=== PATIENT | female | born 1965 | race Caucasian/White ===

== ENCOUNTER 2021-05-04 09:00 | Day surgery (SDC) | payer BC ==
[~2021-05-04 09:00] MED LIST: Acetaminophen 325 MG Tab PO SCH; Dexamethasone 4 MG/ML 5 ML MDV ONE; Ketamine 500 mg/10 ML MDV ONE; Ketorolac 15 MG/ML SDV ONE; Lactated Ringers 1,000 ML IV SCH; Lidocaine 1% 4 ML ONE; Lidocaine 1%/Sod Bicarbonate in NS 8.4% 1 ML Syringe IDERM PRN; Midazolam 1 MG/ML 2 ML SDV ONE; Ondansetron 4 MG/2 ML SDV ONE; Pregabalin 25 MG Cap PO SCH; Propofol 200 MG/20 ML SDV ONE; Sodium Chloride 0.9% 10 ML Syringe FLUSH PRN; ceFAZolin 1 GM Vial ONE; fentaNYL 100 MCG/2 ML SDV ONE; oxyCODONE ER 10 MG TAB.ER PO SCH
[2021-05-04] MEDS ORDERED: EPINEPHrine 1 MG/ML SDV ONE (09:16)
[2021-05-04] MEDS ORDERED: Ropivacaine 0.5% 5 MG/ML 30 ML SDV ONE (09:16)
[2021-05-04] MEDS ORDERED: Scopolamine 1.5 MG Transdermal Patch TOP ONE (11:00)
[2021-05-04] MEDS ORDERED: ceFAZolin 1 GM Vial ONE (11:50)
[2021-05-04] MEDS ORDERED: Lactated Ringers 1,000 ML ONE (11:50)
[2021-05-04] MEDS: Morphine 8 MG, EPINEPHrine 0.3 MG, Cefuroxime 750 MG, Ketorolac 30 MG, Sodium Chloride ... PRN ×15 (12:17→12:50)
[2021-05-04] MEDS: Vancomycin 1 GM SDV ONE ×4 (12:18→13:02)
--- NOTE | 2021-05-04 12:32 | PCM.PREANE ---
Preanesthetic Assessment - Procedure Proposed Procedure: Right Total Knee Arthroplasty - Anesthesia/Transfusion/Family Hx Anesthesia History: Prior Anesthesia Reaction Type of Anesthesia Reaction: Excessive Nausea/Vomiting Family History of Anesthesia Reaction: No - Review of Systems General: No Symptoms Pulmonary: No Symptoms Cardiovascular: Other (Elevated BP reading today. Per H&P intermittent elevated BP readings. 176/95 down to 146/83 now. ) Gastrointestinal: No Symptoms Neurological: Pre-Existing Deficit (Brain Surgery in 2000, posterior skull plate. ) Other: Reports: None (Obesity BMI 40), Thyroid Problems - Physical Assessment NPO Status Date: 05/03/21 NPO Status Time: 23:30 Vital Signs: Last Vital Signs Temp 36.7 C 05/04/21 09:10 Pulse 72 05/04/21 09:20 Resp 20 05/04/21 09:10 BP 146/83 H 05/04/21 09:20 Pulse Ox 95 05/04/21 09:10 Height: 1.73 m Weight: 113.1 kg ASA Class: 3 Mental Status: Alert & Oriented x3 Airway Class: Mallampati = 2 Dentition: Reports: Partial (Upper) Thyro-Mental Finger Breadths: 2 Mouth Opening Finger Breadths: 3 ROM/Head Extension: Full Lungs: Clear to Auscultation, Normal Respiratory Effort Cardiovascular: Regular Rate, Regular Rhythm - Lab Values: Reviewed. - Imaging/EKG Impressions: NSR at 93 bpm. Left Ventricular Hypertrophy. - Allergies Allergies/Adverse Reactions: Allergies Allergy/AdvReac Type Severity Reaction Status Date / Time No Known Allergies Allergy Verified 05/03/21 12:18 - Anesthesia Plan Pre-Op Medication Ordered: Other (Scopalamine Patch) - Acknowledgements Anesthesia Type Planned: Spinal Pt an Appropriate Candidate for the Planned Anesthesia: Yes Alternatives and Risks of Anesthesia Discussed w Pt/Guardian: Yes Pt/Guardian Understands and Agrees with Anesthesia Plan: Yes PreAnesthesia Questionnaire HEENT History: Reports: Impaired Vision, Other (See Below) Other HEENT History: wears glasses, contacts, has partial Cardiovascular History: Reports: High Cholesterol Respiratory History: Reports: None Gastrointestinal History: Reports: None Genitourinary History: Reports: None RESPIRATORY THERAPY DIRECTOR History: Reports: Musculoskeletal History: Reports: Arthritis, Other (See Below) Other Musculoskeletal History: carpal tunnel syndrome Neurological History: Reports: None Psychiatric History: Reports: None Endocrine/Metabolic History: Reports: Hypothyroidism Hematologic History: Reports: None Immunologic History: Reports: None Oncologic (Cancer) History: Reports: None Dermatologic History: Reports: None - Past Surgical History Cardiovascular Surgical History: Reports: None Respiratory Surgical History: Reports: None GI Surgical History: Reports: Appendectomy Female Surgical History: Reports: Hysterectomy Male Surgical History: Reports: None Endocrine Surgical History: Reports: None Neurological Surgical History: Reports: Other (See Below) Other Neurological Surgeries/Procedures: brain stem surgery with plate in 2000 Musculoskeletal Surgical History: Reports: Other (See Below) Other Musculoskeletal Surgeries/Procedures:: repair of ruptured tendon in left hand Oncologic Surgical History: Reports: None Dermatological Surgical History: Reports: None - SUBSTANCE USE Tobacco Use Status *Q: Never Tobacco User Recreational Drug Use History: No - HOME MEDS Home Medications: Home Meds Fish Oil/[place]-3 Fatty Acids [Fish Oil] 1,200 mg PO DAILY 10/06/14 [History] Glucosamine/D3/Boswellia Eliana [Osteo Bi-Flex Caplet] 1 each PO DAILY 10/06/14 [History] Cholecalciferol (Vitamin D3) [Vitamin D3] 1,000 unit PO DAILY 05/03/21 [History] Levothyroxine Sodium [Levothyroxine] 175 mcg PO DAILY 05/03/21 [History] Mv-Min/Iron/Folic/Calcium/Vitk [Women's Multivitamin Tablet] 1 tab PO DAILY 05/03/21 [History] Aspirin [Aspirin EC] 325 mg PO BID #84 tab 05/04/21 [Rx] Cyclobenzaprine [Flexeril] 10 mg PO BID PRN #20 tab 05/04/21 [Rx] oxyCODONE 5 - 10 mg PO Q4H PRN #40 tab 05/04/21 [Rx] - CURRENT (IN HOUSE) MEDS Current Meds: Current Medications Acetaminophen (Acetaminophen 325 Mg Tab) 975 mg PO ONETIME LISY Stop: 05/04/21 16:00 Last Admin: 05/04/21 09:25 Dose: 975 mg Documented by: Morphine Sulfate 8 mg/Epinephrine HCl 0.3 mg/Cefuroxime Sodium 750 mg/Ketorolac Tromethamine 30 mg/Sodium Chloride 7.9 ml 0 mg .XX ASDIRECTED PRN PRN Reason: Pain Stop: 05/04/21 13:00 Last Admin: 05/04/21 12:17 Dose: 788.3 mg Documented by: Lactated Ringer's (Ringers, Lactated) 1,000 mls @ 125 mls/hr IV ASDIRECTED LISY Stop: 05/04/21 23:00 Last Admin: 05/04/21 09:15 Dose: 125 mls/hr Documented by: Lidocaine/Sodium Bicarbonate (Lidocaine 1%/Sod Bicarbonate In Ns 8.4% 1 Ml Syringe) 0.25 ml IDERM ONETIME PRN PRN Reason: Prior to IV Start Stop: 05/04/21 18:00 Last Admin: 05/04/21 09:15 Dose: 0.25 ml Documented by: Oxycodone HCl (Oxycodone Er 10 Mg Tab.Er) 10 mg PO ONETIME LISY Stop: 05/04/21 18:00 Last Admin: 05/04/21 09:23 Dose: 10 mg Documented by: Pregabalin (Pregabalin 25 Mg Cap) 50 mg PO ONETIME LISY Stop: 05/04/21 18:00 Last Admin: 05/04/21 09:24 Dose: 50 mg Documented by: Sodium Chloride (Sodium Chloride 0.9% 10 Ml Syringe) 10 ml FLUSH ASDIRECTED PRN PRN Reason: Keep Vein Open Stop: 05/04/21 18:00 Discontinued Medications Cefazolin Sodium (Cefazolin 1 Gm Vial) Confirm Administered Dose 2 gm .ROUTE .STK-MED ONE Stop: 05/04/21 08:56 Cefazolin Sodium (Cefazolin 1 Gm Vial) Confirm Administered Dose 1 gm .ROUTE .STK-MED ONE Stop: 05/04/21 11:51 Dexamethasone (Dexamethasone 4 Mg/Ml 5 Ml Mdv) Confirm Administered Dose 20 mg .ROUTE .STK-MED ONE Stop: 05/04/21 08:56 Epinephrine HCl (Epinephrine 1 Mg/Ml Sdv) Confirm Administered Dose 1 mg .ROUTE .STK-MED ONE Stop: 05/04/21 09:17 Fentanyl (Fentanyl 100 Mcg/2 Ml Sdv) Confirm Administered Dose 100 mcg .ROUTE .STK-MED ONE Stop: 05/04/21 08:56 Lidocaine HCl (Xylocaine-Mpf 1%) Confirm Administered Dose 4 mls @ as directed .ROUTE .STK-MED ONE Stop: 05/04/21 08:56 Lactated Ringer's (Ringers, Lactated) Confirm Administered Dose 1,000 mls @ as directed .ROUTE .STK-MED ONE Stop: 05/04/21 11:51 Ketamine HCl (Ketamine 500 Mg/10 Ml Mdv) Confirm Administered Dose 500 mg .ROUTE .STK-MED ONE Stop: 05/04/21 08:56 Ketorolac Tromethamine (Ketorolac 15 Mg/Ml Sdv) Confirm Administered Dose 15 mg .ROUTE .STK-MED ONE Stop: 05/04/21 08:56 Midazolam HCl (Midazolam 1 Mg/Ml 2 Ml Sdv) Confirm Administered Dose 2 mg .ROUTE .STK-MED ONE Stop: 05/04/21 08:56 Ondansetron HCl (Ondansetron 4 Mg/2 Ml Sdv) Confirm Administered Dose 4 mg .ROUTE .STK-MED ONE Stop: 05/04/21 08:56 Propofol (Propofol 200 Mg/20 Ml Sdv) Confirm Administered Dose 600 mg .ROUTE .STK-MED ONE Stop: 05/04/21 08:56 Ropivacaine (Ropivacaine 0.5% 5 Mg/Ml 30 Ml Sdv) Confirm Administered Dose 30 ml .ROUTE .STK-MED ONE Stop: 05/04/21 09:17 Scopolamine (Scopolamine 1.5 Mg Transdermal Patch) 1.5 mg TOP ONETIME ONE Stop: 05/04/21 11:01 Last Admin: 05/04/21 10:24 Dose: 1.5 mg Documented by: Tranexamic Acid (Tranexamic Acid 1,000 Mg/10 Ml Amp) Confirm Administered Dose 1,000 mg .ROUTE .STK-MED ONE Stop: 05/04/21 09:23 Last Admin: 05/04/21 12:18 Dose: 1,000 mg Documented by: Vancomycin HCl (Vancomycin 1 Gm Sdv) Confirm Administered Dose 1 gm .ROUTE .STK- MED ONE Stop: 05/04/21 09:23 Last Admin: 05/04/21 12:18 Dose: 1 gm Documented by:
[2021-05-04] MEDS ORDERED: Propofol 200 MG/20 ML SDV ONE (12:37)
[2021-05-04] MEDS ORDERED: fentaNYL 100 MCG/2 ML SDV IVPUSH PRN (12:41)
[2021-05-04] MEDS ORDERED: HYDROmorphone 0.5 MG/0.5 ML Syringe IVPUSH PRN (12:41)
[2021-05-04] MEDS ORDERED: Ondansetron 4 MG/2 ML SDV IVPUSH PRN (12:41)
--- NOTE | 2021-05-04 13:41 | PCM.POSTAN ---
POST ANESTHESIA ASSESSMENT - MENTAL STATUS Mental Status: Alert, Oriented - VITAL SIGNS Vital Signs: Last Vital Signs Temp 36.7 C 05/04/21 09:10 Pulse 72 05/04/21 09:20 Resp 20 05/04/21 09:10 BP 146/83 H 05/04/21 09:20 Pulse Ox 95 05/04/21 09:10 112/65 100 16 96% 99.5F - RESPIRATORY Respiratory Status: Respiratory Rate WNL, Airway Patent, O2 Saturation Stable, Supplemental Oxygen - CARDIOVASCULAR CV Status: Pulse Rate WNL, Blood Pressure Stable - GASTROINTESTINAL GI Status: No Symptoms - PAIN Pain Score: 0 - POST OP HYDRATION Hydration Status: Adequate & Stable
--- NOTE | 2021-05-04 14:02 | PCM.SN.2 ---
- Free Text/Narrative Note: Right selective femoral nerve block at the adductor canal for post-procedure pain control under US guidance requested by Dr. Ram. Date: 05/04/21 Time Out: 1347 Start:1351 End: 1353 Chart reviewed. Consent signed. Questions answered. Appropriate monitors applied. Time out performed. Right mid-shaft femur identified with ultrasound, scanning medially of femur, the femoral artery in the adductor canal visualized, and the femoral nerve located laterally to the artery. The skin was prepped lateral to the ultrasound probe with chlorahexadine times two. The 21ga 4 insulated block needle was inserted under direct ultrasound guidance into the adductor canal. 25mL of 0.5% ropivacaine with 1:200,000 epinephrine was injected circumferentially around the nerve with intermittent negative aspiration noted. Patient tolerated the procedure well. Sterile technique noted along with sterile gloves, mask, and sterile probe cover. See picture on progress note and vital signs on nurses notes. Block completed in PACU. Jason Falk CRNA
--- NOTE | 2021-05-04 14:09 | PCM48HPAN ---
Post Anesthesia Note - EVALUATION WITHIN 48HRS OF ANESTHETIC Vital Signs in Normal Range: Yes Patient Participated in Evaluation: Yes Respiratory Function Stable: Yes Airway Patent: Yes Cardiovascular Function Stable: Yes Hydration Status Stable: Yes Pain Control Satisfactory: Yes Nausea and Vomiting Control Satisfactory: Yes Mental Status Recovered: Yes Vital Signs: Last Vital Signs Temp 36.9 C 05/04/21 14:00 Pulse 73 05/04/21 14:00 Resp 16 05/04/21 14:00 BP 124/74 05/04/21 14:00 Pulse Ox 97 05/04/21 14:00
[2021-05-04] MEDS ORDERED: Cyclobenzaprine 10 MG Tab PO SCH (14:30)
[2021-05-04] MEDS ORDERED: oxyCODONE 5 MG Tab PO SCH (14:30)
--- NOTE | 2021-05-04 16:52 | CR ---
Right knee: AP and crosstable lateral views of the right knee were obtained. Comparison: Prior CT right knee study of 04/21/21. Knee prosthesis is noted. Components are aligned. Patellar prosthesis is also seen. Soft tissue air is noted. No underlying bony abnormality is seen. Impression: 1. Satisfactory postop radiographic appearance of recently placed right knee prosthesis. Diagnostic code #2
--- NOTE | 2021-05-10 07:28 | PCM.OPNOTE ---
- General Post-Op/Procedure Note Date of Surgery/Procedure: 05/04/21 Operative Procedure(s): right total knee arthroplasty with [employer] robotics Pre Op Diagnosis: right knee osteoarthrosis Post-Op Diagnosis: Same Anesthesia Technique: Local, MAC, Spinal Primary Surgeon: Sameer Ram Anesthesia Provider: Johanna Falk Audit Consultant: Glo Krause Audit Consultant: Cecilia Lomas EBL in mLs: 200 Complications: None Condition: Good Free Text/Narrative:: / 9mm 32x10
--- NOTE | 2021-05-14 21:55 | OR ---
DATE OF OPERATION: 05/04/2021 SURGEON: Sameer Ram MD OPERATION PERFORMED: Right total knee arthroplasty with [place] [employer] robotics. PREOPERATIVE DIAGNOSIS: Right knee osteoarthrosis. POSTOPERATIVE DIAGNOSIS: Right knee osteoarthrosis. ANESTHESIA: Local MAC with spinal. ANESTHESIA PROVIDER: Mague Terry. SENIOR SOFTWARE DEVELOPMENT ENGINEER: Glo Krause PA-C and Cecilia Lomas LPN. ESTIMATED BLOOD LOSS: 200 mL. COMPLICATIONS: None. CONDITION: Stable. IMPLANT: 1. [place] size 4 press-fit CR femur. 2. [employer] size 4 press-fit tibial baseplate. 3. [employer] size 4 9 mm CS polyethylene insert. 4. [place] size 32 x 10 mm press-fit asymmetric patella. DESCRIPTION OF PROCEDURE: The patient was identified in the preoperative holding area, where proper site was marked and identified by the surgeon. The patient was taken back to the operating theater where after adequate anesthesia, the patient had nonsterile tourniquet applied to the right lower extremity. The right lower extremity was then sterilely prepped and draped in the usual sterile fashion. OR time-out was performed. The patient received 2 g IV Ancef. The leg benitez boot was then applied to the right lower extremity. The right lower extremity was exsanguinated. Tourniquet was insufflated to 250 mmHg. A standard anterior incision was made and an anterior medial parapatellar arthrotomy was created. Deep fibers of the MCL were raised. Anterior fat pad was resected. Attention was turned to the patella. Patella measured 24 and resected to 14 for a 32 x 10 mm patella. Drill holes were then drilled and found to be adequate. Attention was turned to the femur. Two 4.0 Schanz pins were then placed intra- incisionally for the [employer] robotic array on the femur, then 2 more were placed in the tibia 3 fingerbreadths distal to the tibial tubercle. The femoral and tibial checkpoints were then applied. A hip center rotation was then obtained. Medial and lateral malleoli were marked. 40 points were then obtained off both the femur and the tibia for the [employer] robotic implant. The patient's knee was brought into full extension. Varus and valgus stresses were applied as well as 90 degrees of flexion. The patient had the plan made for 19 mm gaps in both flexion and in extension. At this time, the [employer] robotic arm was brought in with a straight saw blade. The tibial cut was then completed as well as the anterior femoral cut, anterior chamfer cut, and posterior femoral cuts. Saw blade was then switched, and the distal femoral cut as well as posterior chamfer cut were then completed. Bony fragments were removed. Medial and lateral meniscus were resected as well as any posterior osteophytes. A size 4 trial base plate was then placed along the size 4 trial CS femur. A 9 mm trial spacer was placed. The patient had full extension and flexion. No signs of liftoff, and patella were tracking centrally. Femoral drill holes were then drilled. The tibia was stamped and drilled in proper rotation. The size 4 implant for the tibia was impacted in place. The size 4 femur was impacted in place. 9 mm CS polyethylene insert was impacted in place. The patient's knee was brought into full extension. A 32 x 10 mm press-fit asymmetric patella was pressed into place. The tourniquet was deflated. Bleeders were cauterized. 1 L pulse lavage irrigation with Ancef was irrigated through the knee along with 400 mL IrriSept irrigation. Periarticular injection was completed. Topical tranexamic acid and vancomycin powder were applied. A #2 barbed suture was used for closure of the medial parapatellar arthrotomy, 2-0 Vicryl and Stratafix were used for subcutaneous closure, and Prineo was used for skin closure. The patient had a sterile soft dressing applied. Please note that all [employer] robotic pins and checkpoints were removed before closure. The patient was sent to PACU in stable condition. MMODAL /[id number]
== END 2021-05-04 15:52 | disposition home or self-care (01) ==
LOC: JD.SDS 09:00
PROVIDERS: ATTEND Orthopaedic Surgery
DX: M17.0 Bilateral primary osteoarthritis of knee (principal); E78.5 Hyperlipidemia, unspecified; E03.9 Hypothyroidism, unspecified; M86.9 Osteomyelitis, unspecified; R03.0 Elevated blood-pressure reading, without diagnosis of hypertension; G89.29 Other chronic pain; G89.18 Other acute postprocedural pain; Z79.82 Long term (current) use of aspirin; Z79.899 Other long term (current) drug therapy; Z79.890 Hormone replacement therapy; Z98.890 Other specified postprocedural states; Z90.49 Acquired absence of other specified parts of digestive tract
CPT/HCPCS: 27447; 73560; 97116; 97161; 97165; A9270; C1713; C1776; J0171; J0690; J0697; J1100; J1885; J2250; J2270; J2405; J2704; J2795; J3370; J7120; 01402; 64450; 76942; J3010

== ENCOUNTER 2024-12-15 06:57 | Day surgery (SDC) | payer BC ==
[~2024-12-15 06:57] MED LIST changes: -Acetaminophen 325 MG Tab PO SCH; -Dexamethasone 4 MG/ML 5 ML MDV ONE; -Ketamine 500 mg/10 ML MDV ONE; -Ketorolac 15 MG/ML SDV ONE; -Lactated Ringers 1,000 ML IV SCH; -Lidocaine 1% 4 ML ONE; -Lidocaine 1%/Sod Bicarbonate in NS 8.4% 1 ML Syringe IDERM PRN; -Midazolam 1 MG/ML 2 ML SDV ONE; -Ondansetron 4 MG/2 ML SDV ONE; -Pregabalin 25 MG Cap PO SCH; -Propofol 200 MG/20 ML SDV ONE; +Sodium Chloride 0.9% 10 ML Syringe FLUSH SCH; -ceFAZolin 1 GM Vial ONE; -fentaNYL 100 MCG/2 ML SDV ONE; -oxyCODONE ER 10 MG TAB.ER PO SCH
[2024-12-15] MEDS: Lactated Ringers 1,000 ML IV SCH (07:15)
[2024-12-15] MEDS ORDERED: Lidocaine 1% 4 ML ONE (07:30)
[2024-12-15] MEDS ORDERED: Propofol 200 MG/20 ML SDV ONE ×2 (07:30→07:38)
== END 2024-12-15 09:10 | disposition home or self-care (01) ==
LOC: JD.SDS 06:57
PROVIDERS: ATTEND Surgery
DX: Z12.11 Encounter for screening for malignant neoplasm of colon (principal); R19.5 Other fecal abnormalities; K57.30 Diverticulosis of large intestine without perforation or abscess without bleeding; I10 Essential (primary) hypertension; E78.00 Pure hypercholesterolemia, unspecified; E03.9 Hypothyroidism, unspecified; Z79.890 Hormone replacement therapy; Z79.899 Other long term (current) drug therapy
CPT/HCPCS: 45378; J2704; J7120; 00811; J3490